=== PATIENT | male | born 1945 | race Hispanic/Latino ===

== ENCOUNTER 2019-07-27 12:52 | Emergency (ER) | payer MEDICARE ==
[~2019-07-27] VITALS: Ht 190.5 cm; Wt 104.3 kg
--- NOTE | 2019-07-27 13:31 | Diagnostic Imaging Report ---
EXAMINATION: CXR 2 VIEW - HOPD INDICATION: None provided. COMPARISON: None FINDINGS: TUBES and LINES: None. LUNGS: Lungs are well inflated. There is no evidence of pneumonia or pulmonary edema. Nodular opacities overlying bilateral lower lungs, likely nipple shadows. PLEURA: No pleural effusion or pneumothorax. HEART AND MEDIASTINUM: The cardiomediastinal silhouette is unremarkable. There are atherosclerotic calcifications within the aorta. BONES AND SOFT TISSUES: No acute osseous abnormality. UPPER ABDOMEN: No free air under the diaphragm. IMPRESSION: No acute radiographic abnormality. Signed by: Dr. Janee Rubio MD on 07/27/2019 1:28 PM
[2019-07-27] MEDS ORDERED: PREDNISONE20 MG PO (13:50)
[2019-07-27] MEDS ORDERED: CEFDINIR300 MG PO (13:50)
[2019-07-27] MEDS ORDERED: PROVENTIL HFA6.7 GM PO (13:50)
[2019-07-27] MEDS ORDERED: CODEINE-GUAIFE120 ML PO (13:50)
--- OUTSIDE RECORDS SUMMARY | 2019-08-03 11:52 | XMS REPORT ---
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 Allergies, Adverse Reactions, Alerts This patient has no known allergies or adverse reactions. Medications This patient has no known medications. Results Test Description Test Time Test Comments Text Results Atomic Results Result Comments CXR 2 VIEW - HOPD 2019-07-27 13:23:00 [place] [id number] Patient Name: AYDEN WORTHY MR #: [id number] : 1945 Age/Sex: 73/M Req #: [id number] Adm Physician: Ordered by: SINGH NICOLAS MD Report #: [id number] Location: [facility] Room/Bed: Procedure: [id number] HOPD/CXR 2 VIEW - HOPD Exam Date: 07/27/19 Exam Time: 1317 REPORT STATUS: Signed EXAMINATION: CXR 2 VIEW - HOPD INDICATION: N one provided. COMPARISON: None FINDINGS: TUBES and LINES: None. LUNGS: Lungs are well inflated. There is no evidence of pneumonia or pulmonary edema. Nodular opacities overlying bilateral lower lungs, likely nipple shadows. PLEURA: No pleural effusion or pneumothorax. HEART AND MEDIASTINUM: The cardiomediastinal silhouette is unremarkable. There are atherosclerotic calcifications within the aorta. BONES AND SOFT TISSUES: No acute osseous abnormality. UPPER ABDOMEN: No free air under the diaphragm. IMPRESSION: No acute radiographic abnormality. Signed by: Dr. Tulio Child MD on 07/27/2019 1:28 PM Dictated By: TULIO CHILD MD Transcribed By: JONAH on 07/27/191327 COPY TO: SINGH NICOLAS MD
== END 2019-07-27 14:23 | disposition home or self-care (01) ==
LOC: FSED 12:52
DX: R05 Cough (principal); J20.9 Acute bronchitis, unspecified; I10 Essential (primary) hypertension; Z87.01 Personal history of pneumonia (recurrent)
CPT/HCPCS: 71046; 99283